=== PATIENT | female | born 1995 | race Caucasian/White ===

== ENCOUNTER → 2018-02-17 | Outpatient (CLI) | payer MEDICARE, MEDICAID ==
[~2018-02-17] VITALS: Ht 158.8 cm; Wt 133.4 kg
[~2018-02-17] MED LIST: ALDACTONE50 MG PO; BIOTIN800 MCG PO; CELEBREX 1100 MG/CAP PO; ERGOCALCIFER50000 IU PO; FLONASEALLERGY NS; GLUCOPHAGE500 MG/TAB PO; IMITREX 25MG TA25 MG PO; KLONOPIN 1MG1 MG PO; MOBIC15 MG PO; PRIL40 PO; PRISTIQ100 MG PO; PROZAC 20MG20 MG PO; RECLIPSEN 0.151 TAB PO; VISTARIL 2525 MG/CAP PO; VYVANSE20 MG PO; ZYRTEC 10MG10 MG PO
[2018-02-17 15:00] VITALS: BP 110/64; PULSE 96
== END ==
LOC: LIGHT 11:22
DX: E88.81 Metabolic syndrome and other insulin resistance (principal); E16.9 Disorder of pancreatic internal secretion, unspecified; R73.01 Impaired fasting glucose; E66.01 Morbid (severe) obesity due to excess calories; Z68.43 Body mass index [BMI] 50.0-59.9, adult; Z71.3 Dietary counseling and surveillance
CPT/HCPCS: G0463

== ENCOUNTER → 2018-02-28 | Outpatient (CLI) | payer MEDICARE, MEDICAID | LOC: LIGHT 12:53 | DX: E88.81 Metabolic syndrome and other insulin resistance (principal); E16.9 Disorder of pancreatic internal secretion, unspecified; E66.01 Morbid (severe) obesity due to excess calories; Z68.43 Body mass index [BMI] 50.0-59.9, adult; Z71.3 Dietary counseling and surveillance ==

== ENCOUNTER → 2018-03-02 | Outpatient (CLI) | payer MEDICARE, MEDICAID | LOC: LIGHT 12:39 | DX: E88.81 Metabolic syndrome and other insulin resistance (principal); E16.9 Disorder of pancreatic internal secretion, unspecified; E66.01 Morbid (severe) obesity due to excess calories; Z68.43 Body mass index [BMI] 50.0-59.9, adult; Z71.3 Dietary counseling and surveillance ==

== ENCOUNTER → 2018-03-24 | Outpatient (CLI) | payer MEDICARE, MEDICAID ==
[~2018-03-24] VITALS: Ht 158.8 cm; Wt 130.0 kg
[2018-03-24 14:52] VITALS: BP 130/70; PULSE 108
== END ==
LOC: LIGHT 14:33
DX: E88.81 Metabolic syndrome and other insulin resistance (principal); E16.9 Disorder of pancreatic internal secretion, unspecified; E66.01 Morbid (severe) obesity due to excess calories; Z68.43 Body mass index [BMI] 50.0-59.9, adult; Z71.3 Dietary counseling and surveillance
CPT/HCPCS: G0463

== ENCOUNTER → 2018-05-05 | Outpatient (CLI) | payer MEDICARE, MEDICAID ==
[~2018-05-05] VITALS: Ht 158.8 cm; Wt 129.7 kg
[2018-05-05 16:12] VITALS: BP 126/74; PULSE 60
== END ==
LOC: LIGHT 04-28 15:12
DX: E88.81 Metabolic syndrome and other insulin resistance (principal); E16.9 Disorder of pancreatic internal secretion, unspecified; E66.01 Morbid (severe) obesity due to excess calories; Z68.43 Body mass index [BMI] 50.0-59.9, adult; Z71.3 Dietary counseling and surveillance
CPT/HCPCS: G0463

== ENCOUNTER → 2018-07-07 | Outpatient (CLI) | payer MEDICARE, MEDICAID ==
[~2018-07-07] VITALS: Ht 158.8 cm; Wt 129.3 kg
[~2018-07-07] MED LIST changes: +NEURONTIN300 MG/CAP PO; +ZESTRIL 10MG10 MG PO
[2018-07-07 15:51] VITALS: BP 116/64; PULSE 100
== END ==
LOC: LIGHT 15:24
DX: E88.81 Metabolic syndrome and other insulin resistance (principal); E16.9 Disorder of pancreatic internal secretion, unspecified; R73.01 Impaired fasting glucose; E66.01 Morbid (severe) obesity due to excess calories; Z68.43 Body mass index [BMI] 50.0-59.9, adult; Z71.3 Dietary counseling and surveillance
CPT/HCPCS: G0463

== ENCOUNTER → 2018-08-11 | Outpatient (CLI) | payer MEDICARE, MEDICAID ==
[~2018-08-11] VITALS: Ht 158.8 cm; Wt 129.5 kg
[2018-08-11 14:38] VITALS: BP 128/68; PULSE 80
== END ==
LOC: LIGHT 13:28
DX: E88.81 Metabolic syndrome and other insulin resistance (principal); E16.9 Disorder of pancreatic internal secretion, unspecified; R73.01 Impaired fasting glucose; E66.01 Morbid (severe) obesity due to excess calories; Z68.43 Body mass index [BMI] 50.0-59.9, adult; Z71.3 Dietary counseling and surveillance
CPT/HCPCS: G0463

== ENCOUNTER → 2018-09-01 | Outpatient (CLI) | payer MEDICARE, MEDICAID ==
[~2018-09-01] VITALS: Ht 158.8 cm; Wt 129.5 kg
[~2018-09-01] MED LIST changes: +DESYREL 50MG50 MG PO
[2018-09-01 14:03] VITALS: BP 116/60; PULSE 108
== END ==
LOC: LIGHT 13:46
DX: E88.81 Metabolic syndrome and other insulin resistance (principal); E16.9 Disorder of pancreatic internal secretion, unspecified; R73.01 Impaired fasting glucose; E66.01 Morbid (severe) obesity due to excess calories; Z68.43 Body mass index [BMI] 50.0-59.9, adult; Z71.3 Dietary counseling and surveillance
CPT/HCPCS: G0463

== ENCOUNTER → 2018-12-06 | Outpatient (CLI) | payer MEDICARE, MEDICAID ==
[~2018-12-06] VITALS: Ht 157.5 cm; Wt 127.2 kg
[~2018-12-06] MED LIST changes: +CELEBREX 200MG200 MG PO
== END ==
LOC: LIGHT 09:54
DX: E88.81 Metabolic syndrome and other insulin resistance (principal); E16.9 Disorder of pancreatic internal secretion, unspecified; R73.01 Impaired fasting glucose; E66.01 Morbid (severe) obesity due to excess calories; Z68.43 Body mass index [BMI] 50.0-59.9, adult; Z71.3 Dietary counseling and surveillance